=== PATIENT | male | born 1980 | race African-American/Black ===

== ENCOUNTER 2017-09-13 09:11 | Emergency (ER) | payer OTHER ==
[~2017-09-13] VITALS: Ht 172.7 cm; Wt 71.2 kg
--- NOTE | 2017-09-13 09:31 | NUR ---
PT TO ED ROOM 03. SOFT STOOL SINCE YEAR OF 2009, DENIES ANY NAUSEA, VOMITING, OR DIARRHEA. A/A/O. AMBULATORY WITH STEADY GAIT. SIDE RAILS UP. HOB ELEVATED. AWAITING EVALUATION BY ER PROVIDER.
--- NOTE | 2017-09-13 09:45 | NUR ---
R AC G 18 IV STARTED, BLOOD TESTS DRAWN AND SEND TO LAB.
[2017-09-13] MEDS ORDERED: MAG HYDROX/AL HYDROX/SIMETH 30 ML UDC ONE (09:50)
[2017-09-13] MEDS ORDERED: MAG HYDROX/AL HYDROX/SIMETH 30 ML UDC PO ONE (10:00)
[2017-09-13 10:03] LABS: CALCIUM, SERUM 8.2 mg/dL (8.5-10.1); CREATININE 0.9 mg/dL (0.6-1.3)
[2017-09-13 10:04] LABS: BASOPHILS % (AUTO) 0.5 % (0.0-2.0); EOSINOPHILS # (AUTO) 0.1 /CMM (0.0-0.7); EOSINOPHILS % (AUTO) 1.2 % (0.0-6.0); HEMATOCRIT 37 % (39-51); HEMOGLOBIN 12.2 g/dL (13.5-17.5); LYMPHOCYTES % (AUTO) 21.5 % (20.0-44.0); MEAN CORPUSCULAR HEMOGLOBIN 33 PG (26.0-33.0); MEAN CORPUSCULAR HGB CONC 33 g/dl (31.0-36.0); MEAN CORPUSCULAR VOLUME 99 fL (80-96); MONOCYTES # (AUTO) 0.4 /CMM (0.1-1.30); NEUTROPHILS # (AUTO) 3.1 /CMM (1.8-8.9); NEUTROPHILS % (AUTO) 67.8 % (43.0-81.0); PLATELET COUNT (AUTO) 196 /CMM (150-450); WHITE BLOOD COUNT (AUTO) 4.6 K/uL (4.3-11.0)
[2017-09-13 10:09] LABS: ALBUMIN 3.5 g/dL (3.4-5.0); BILIRUBIN,DIRECT 0.2 mg/dL (0.0-0.2); BILIRUBIN,TOTAL 0.9 mg/dL (0.2-1.0); TOTAL PROTEIN, SERUM 6.3 g/dL (6.4-8.2)
--- NOTE | 2017-09-13 11:28 | NUR ---
Patient discharged to home in stable condition. Written and verbal after care instructions given. Patient verbalizes understanding of instruction.IV removed. Catheter intact and site benign. Pressure and 4x4 applied to site. No bleeding noted. ambulatory with a steady gait.
--- NOTE | 2017-09-13 11:33 | NUR ---
IV removed. Catheter intact and site benign. Pressure and 4x4 applied to site. No bleeding noted.
[2017-09-13 11:35] VITALS: BP 110/65
== END 2017-09-13 11:36 | disposition home or self-care (01) ==
LOC: ER 09:14
DX: R10.13 Epigastric pain (principal); F17.200 Nicotine dependence, unspecified, uncomplicated; Z71.6 Tobacco abuse counseling
CPT/HCPCS: 36415; 80048; 80076; 83690; 85025; 93005; 99285; A4606; Z7610

== ENCOUNTER 2018-05-06 23:45 | Emergency (ER) | payer OTHER ==
[~2018-05-06] VITALS: Ht 175.3 cm; Wt 77.1 kg
--- NOTE | 2018-05-07 00:01 | NUR ---
BB RA39 ETOH AT RETIREMENT W/ ABDOMINAL PAIN 3/10 NONRADIATING. PATIENT IS AWAKE, LETHARGIC, EASILY AROUSED TO VERBAL STIMULI A/O X2-3 TO NAME, DATE, AND SITUATION, NOTED WITH PERIODS OF CONFUSION. PATIENT REORIENTED TO REALITY. BREATHING EVEN AND NONLABORED, ON ROOM AIR, TOLERATING WELL, FREE FROM ANY S/S OF RESPIRATORY DISTRESS. WITH C/O 3/10 NONRADIATING ABDOMINAL PAIN. WILL CONTINUE TO MONITOR.
--- NOTE | 2018-05-07 00:10 | NUR ---
DR DONOVAN AT BEDSIDE TO EVALUATE PATIENT
--- NOTE | 2018-05-07 00:20 | NUR ---
LEFT WRIST #20 GAUGE STARTED, LABS DRAWN. URINAL GIVEN
[2018-05-07] MEDS ORDERED: HYDROMORPHONE 1 MG/1 ML DISP.SYRIN IV ONE (00:30)
[2018-05-07] MEDS ORDERED: ONDANSETRON HCL/PF 4 MG/2 ML VIAL IVP ONE (00:30)
[2018-05-07] MEDS ORDERED: IV NS 0.9% 1,000 ML BAG IV ONE (00:30)
[2018-05-07] MEDS ORDERED: ONDANSETRON HCL/PF 4 MG/2 ML VIAL ONE (00:37)
[2018-05-07] MEDS ORDERED: HYDROMORPHONE INJ 2 MG/ML DISP.SYRIN ONE (00:39)
--- NOTE | 2018-05-07 00:42 | NUR ---
PATIENT MEDICATED ORDERED
[2018-05-07 00:46] LABS: BASOPHILS % (AUTO) 0.7 % (0.0-2.0); EOSINOPHILS % (AUTO) 1.4 % (0.0-6.0); HEMATOCRIT 40 % (39-51); HEMOGLOBIN 13.4 g/dL (13.5-17.5); LYMPHOCYTES # (AUTO) 1.8 /CMM (0.8-4.8); MEAN CORPUSCULAR HGB CONC 34 g/dl (31.0-36.0); MEAN CORPUSCULAR VOLUME 100 fL (80-96); MONOCYTES # (AUTO) 0.3 /CMM (0.1-1.30); MONOCYTES % (AUTO) 4.7 % (2.0-12.0); NEUTROPHILS # (AUTO) 4.1 /CMM (1.8-8.9); NEUTROPHILS % (AUTO) 65.2 % (43.0-81.0); PLATELET COUNT (AUTO) 200 /CMM (150-450); RDW COEFFICIENT OF VARIATION 12.9 (11.5-15.0); RED BLOOD CELL COUNT(AUTO) 3.96 MIL/uL (4.5-6.0); WHITE BLOOD COUNT (AUTO) 6.3 K/uL (4.3-11.0)
[2018-05-07 00:47] LABS: CALCIUM, SERUM 8.5 mg/dL (8.5-10.1); POTASSIUM 3.2 mmol/L (3.5-5.1)
[2018-05-07 00:52] LABS: INR 1.03 (0.87-1.13)
[2018-05-07 00:53] LABS: BILIRUBIN,DIRECT 0.2 mg/dL (0.0-0.2); BILIRUBIN,TOTAL 1.1 mg/dL (0.2-1.0); TOTAL PROTEIN, SERUM 7.2 g/dL (6.4-8.2)
[2018-05-07] MEDS ORDERED: CT SWABBABLE VALVE TRANS SET 1 EA INFUS.SET MC ONE (01:11)
[2018-05-07] MEDS ORDERED: IOHEXOL-300 100 ML VIAL IV ONE (01:11)
[2018-05-07] MEDS ORDERED: IV NS 0.9% 500 ML IV ONE (01:12)
--- NOTE | 2018-05-07 01:30 | NUR ---
PT TO CT.
--- NOTE | 2018-05-07 01:39 | NUR ---
PT RETURNED FROM CT
--- NOTE | 2018-05-07 02:20 | NUR ---
URINE SAMPLE COLLECTED, SENT TO LAB
[2018-05-07 02:36] LABS: APPEARANCE,URINE CLEAR (CLEAR); BILIRUBIN,URINE NEGATIVE (NEGATIVE); BLOOD, URINE NEGATIVE Ery/uL (NEGATIVE); COLOR,URINE YELLOW (YELLOW); KETONES,URINE NEGATIVE (NEGATIVE); LEUKOCYTE ESTERASE ,URINE NEGATIVE (NEGATIVE); NITRITE, URINE NEGATIVE (NEGATIVE); PH,URINE 5.5 (5.0-8.0); PROTEIN,URINE NEGATIVE (NEGATIVE); UGLUCOSE NEGATIVE (NEGATIVE); UROBILINOGEN,URINE 0.2 EU/dL (0.2)
[2018-05-07] MEDS ORDERED: AMOX/CLAVULANATE 875 MG TABLET PO ONE (04:00)
[2018-05-07] MEDS ORDERED: AMOX/CLAVULANATE 875 MG TABLET ONE (04:01)
--- NOTE | 2018-05-07 04:04 | NUR ---
PATIENT MEDICATED ORDERED
--- NOTE | 2018-05-07 04:19 | NUR ---
IV removed. Catheter intact and site benign. Pressure and 4x4 applied to site. No bleeding noted. PT ambulatory with a steady gait. Patient discharged to home in stable condition. Written and verbal after care instructions given. Patient verbalizes understanding of instruction. Instructed patient not drive or operate heavy machinery. Patient verbalizes understanding.
[2018-05-07 04:22] VITALS: BP 112/66
== END 2018-05-07 04:24 | disposition home or self-care (01) ==
LOC: ER 23:47
DX: K57.32 Diverticulitis of large intestine without perforation or abscess without bleeding (principal); F10.129 Alcohol abuse with intoxication, unspecified
CPT/HCPCS: 36415; 71045; 74160; 80048; 80076; 81001; 83690; 85025; 85730; 96361; 96374; 96375; 99285; A4606; G0480; J1170; J2405; J7030; J7040; Q9967; Z7610; 81000-TC